=== PATIENT | male | born 1955 | race African-American/Black ===

== ENCOUNTER 2019-06-07 06:53 | Day surgery (SDC) | payer OTHER ==
[~2019-06-07 06:53] MED LIST: KETOROLAC TROMETHAMINE 0.45% 4 DROP/0.4 ML DROPERETTE OS PRN
[2019-06-07] MEDS ORDERED: FENTANYL CITRATE INJ/PF 100 MCG/2 ML AMPUL ONE (06:57)
[2019-06-07] MEDS ORDERED: ONDANSETRON HCL INJ/PF 4 MG/2 ML SDV ONE (06:57)
[2019-06-07] MEDS ORDERED: MIDAZOLAM 2 MG/2 ML INJ ONE (06:57)
[2019-06-07] MEDS ORDERED: LIDOCAINE 1% INJ-PF (10 MG/ML) 30 ML SDV ONE (07:08)
[2019-06-07] MEDS ORDERED: EPINEPHRINE INJ/PF 1 MG/1 ML AMPULE ONE (07:08)
[2019-06-07] MEDS ORDERED: CHONDR SU A NA/HYALUR INTRAOC KIT (SURGICARE) ONE (07:08)
[2019-06-07] MEDS: TROPICAMIDE 1% OPH SOLN 15 ML OS PRN ×3 (07:37→07:57)
[2019-06-07] MEDS: CYCLOPENTOLATE 0.2%/PHENYLEPHRINE 1% OPH SOLN 2 ML OS PRN ×3 (07:37→07:57)
[2019-06-07] MEDS: BESIFLOXACIN HCL 0.6% OPH SUSP 5 ML BOTTLE OS PRN ×4 (07:37→08:23)
[2019-06-07] MEDS: TETRACAINE HCL 0.5% OPH SOLN 4 ML OS PRN ×3 (07:38→08:06)
[2019-06-07] MEDS: TOBRAMYCIN SULFATE/DEXAMETH OPH OINTMENT 3.5 GM ONE ×2 (08:23)
[2019-06-07] MEDS: DORZOLAMIDE HCL 2%/TIMOLOL MALEAT 0.5% OPH SOLN 10 ML OS PRN ×2 (08:23)
== END 2019-06-07 08:56 | disposition home or self-care (01) ==
LOC: SC 06:53
PROVIDERS: ATTEND Ophthalmology
DX: H25.12 Age-related nuclear cataract, left eye (principal); E11.9 Type 2 diabetes mellitus without complications; J44.9 Chronic obstructive pulmonary disease, unspecified; Z79.51 Long term (current) use of inhaled steroids; Z79.84 Long term (current) use of oral hypoglycemic drugs; Z79.82 Long term (current) use of aspirin; Z79.899 Other long term (current) drug therapy; Z88.2 Allergy status to sulfonamides
CPT/HCPCS: 66984; 82962; V2632; J2250; J3490 ×4; J0171; J3010; J2405; 142

== ENCOUNTER 2019-06-19 07:15 | Day surgery (SDC) | payer OTHER ==
[~2019-06-19 07:15] MED LIST changes: +FENTANYL CITRATE INJ/PF 100 MCG/2 ML AMPUL ONE; +KETOROLAC TROMETHAMINE 0.45% 4 DROP/0.4 ML DROPERETTE OD PRN; -KETOROLAC TROMETHAMINE 0.45% 4 DROP/0.4 ML DROPERETTE OS PRN; +MIDAZOLAM 2 MG/2 ML INJ ONE; +ONDANSETRON HCL INJ/PF 4 MG/2 ML SDV ONE
[2019-06-19] MEDS: TROPICAMIDE 1% OPH SOLN 15 ML OD PRN ×3 (07:43→08:03)
[2019-06-19] MEDS: CYCLOPENTOLATE 0.2%/PHENYLEPHRINE 1% OPH SOLN 2 ML OD PRN ×3 (07:43→08:03)
[2019-06-19] MEDS: BESIFLOXACIN HCL 0.6% OPH SUSP 5 ML BOTTLE OD PRN ×4 (07:43→08:29)
[2019-06-19] MEDS: TETRACAINE HCL 0.5% OPH SOLN 4 ML OD PRN ×4 (07:44→08:10)
[2019-06-19] MEDS: EPINEPHRINE INJ/PF 1 MG/1 ML AMPULE ONE ×2 (08:19)
[2019-06-19] MEDS: CHONDR SU A NA/HYALUR INTRAOC KIT (SURGICARE) ONE ×2 (08:19)
[2019-06-19] MEDS: LIDOCAINE 1%/PHENYLEPHRINE 1.5% 1 ML VIAL ONE ×2 (08:19)
[2019-06-19] MEDS: DORZOLAMIDE HCL 2%/TIMOLOL MALEAT 0.5% OPH SOLN 10 ML OD PRN ×2 (08:29)
== END 2019-06-19 09:14 | disposition home or self-care (01) ==
LOC: SC 07:15
PROVIDERS: ATTEND Ophthalmology
DX: H25.11 Age-related nuclear cataract, right eye (principal); Z98.42 Cataract extraction status, left eye; E11.9 Type 2 diabetes mellitus without complications; Z79.82 Long term (current) use of aspirin; Z79.899 Other long term (current) drug therapy; Z88.2 Allergy status to sulfonamides; Z85.46 Personal history of malignant neoplasm of prostate
CPT/HCPCS: 66984; 82962; 00142; V2632; J2250; J3490 ×2; J0171; J3010; J2405; J2370; 142